=== PATIENT | female | born 1965 | race Two or more races ===

== ENCOUNTER 2021-01-29 04:13 | Emergency (ER) | payer BC, OTHER ==
[~2021-01-29] VITALS: Ht 152.4 cm; Wt 89.1 kg
[2021-01-29 08:00] VITALS: BP 135/70
== END 2021-01-29 08:58 | disposition home or self-care (01) ==
LOC: EMS 04:14
DX: M25.561 Pain in right knee (principal); M79.89 Other specified soft tissue disorders
CPT/HCPCS: 93971; 99284; 73562-TC; Z7502